=== PATIENT | male | born 1945 | race African-American/Black ===

== ENCOUNTER 2018-10-16 08:22 | Emergency (ER) | payer OTHER ==
--- NOTE | 2018-10-16 10:01 | EDPHYS ---
Physician Documentation [facility] Name: Etienne Jordan Age: 73 yrs Sex: Male : 1945 Arrival Date: 10/16/2018 Time: 08:24 Bed 4 Private MD: ED Physician Yovani De Paz HPI: 10/16 09:56 This 73 yrs old Black Male presents to ER via Ambulatory with complaints of Congestion. rn 09:56 The patient or guardian reports sinus pressure. Onset: The symptoms/episode rn began/occurred 1 week(s) ago. Severity of symptoms: At their worst the symptoms were mild, in the emergency department the symptoms are unchanged. Modifying factors: The symptoms are alleviated by nothing, the symptoms are aggravated by nothing. The patient has not experienced similar symptoms in the past. Reports sinus pressure and congestion for 1 week, OTC meds not helping, mild cough. Historical: - Allergies: 08:45 No Known Allergies; aa5 - PMHx: 08:45 CHF; Diabetes - IDDM; Hypertension; RENAL FAILURE; aa5 - Immunization history:: Adult Immunizations unknown. - Social history:: Smoking status: Patient/guardian denies using tobacco. - Ebola Screening: : No symptoms or risks identified at this time. - Family history:: not pertinent. - Hospitalizations: : No recent hospitalization is reported. ROS: 09:56 Constitutional: Negative for fever, chills, and weight loss, ENT: + sinus pressure and rn congestion Neck: Negative for injury, pain, and swelling, Cardiovascular: Negative for chest pain, palpitations, and edema, Respiratory: Negative for shortness of breath, wheezing, and pleuritic chest pain, Abdomen/GI: Negative for abdominal pain, nausea, vomiting, diarrhea, and constipation, MS/Extremity: Negative for injury and deformity, Skin: Negative for injury, rash, and discoloration, Neuro: Negative for headache, weakness, numbness, tingling, and seizure. Exam: 09:56 Constitutional: This is a well developed, well nourished patient who is awake, alert, rn and in no acute distress. Head/Face: Normocephalic, atraumatic. ENT: mild pharyngeal erythema, no stridor, no lesions Respiratory: Lungs have equal breath sounds bilaterally, clear to auscultation. No rales, rhonchi or wheezes noted. No increased work of breathing, no retractions or nasal flaring. Vital Signs: 08:45 BP 189 / 108; Pulse 60; Resp 20 S; Temp 97.0(TE); Pulse Ox 97% on R/A; Weight 124.28 kg aa5 (R); Height 5 ft. 7 in. (170.18 cm) (R); Pain 6/10; 09:45 BP 172 / 92; Pulse 60; Resp 18; Temp 97.2; Pulse Ox 98% on R/A; sg 08:45 Body Mass Index 42.91 (124.28 kg, 170.18 cm) aa5 08:45 Pt c/o headache aa5 MDM: 09:24 Patient medically screened. rn 09:56 Differential Diagnosis: Upper Respiratory Infection Sinusitis. Differential Diagnosis: rn Viral Syndrome. Data reviewed: vital signs, nurses notes. Counseling: I had a detailed discussion with the patient and/or guardian regarding: the historical points, exam findings, and any diagnostic results supporting the discharge/admit diagnosis, the need for outpatient follow up, to return to the emergency department if symptoms worsen or persist or if there are any questions or concerns that arise at home. Response to treatment: There is no appreciated change of the patient's symptoms at this time. Special discussion: I discussed with the patient/guardian in detail that at this point there is no indication for admission to the hospital. It is understood, however, that if the symptoms persist or worsen the patient needs to return immediately for re-evaluation. Administered Medications: No medications were administered Disposition: 10/16/18 10:00 Discharged to Home. Impression: Acute sinusitis, unspecified. - Condition is Stable. - Discharge Instructions: Sinusitis, Adult. - Prescriptions for Zithromax Z- Sukumar 250 mg Oral Tablet - take 1 tablet by ORAL route as directed for 5 days Day 1 - take two (2) tablets one time. Day 2, 3, 4 , 5 take one (1) tablet once daily.; 6 tablet. - Medication Reconciliation Form, Thank You Letter, Antibiotic Education, Prescription Opioid Use form. - Follow up: Private Physician; When: As needed; Reason: Recheck today's complaints, Re-evaluation by your physician. - Problem is new. - Symptoms have improved. Signatures: Fernie Watts RN RN Yovani De Paz MD MD rn Calderon, Audri, RN RN aa5 Corrections: (The following items were deleted from the chart) 10:05 10:00 10/16/2018 10:00 Discharged to Home. Impression: Acute sinusitis, unspecified. sg Condition is Stable. Forms are Medication Reconciliation Form, Thank You Letter, Antibiotic Education, Prescription Opioid Use. Follow up: Private Physician; When: As needed; Reason: Recheck today's complaints, Re-evaluation by your physician. Problem is new. Symptoms have improved. rn
--- NOTE | 2018-10-16 10:01 | ER ---
Nurse's Notes [facility] Name: Etienne Jordan Age: 73 yrs Sex: Male : 1945 Arrival Date: 10/16/2018 Time: 08:24 Bed 4 Private MD: Diagnosis: Acute sinusitis, unspecified Presentation: 10/16 08:44 Presenting complaint: Patient states: sinus congestion that began 1 week ago. Pt states aa5 "it's mostly at night than during the day". Pt denies sore throat, denies ear pain, denies cough. Transition of care: patient was not received from another setting of care. Onset of symptoms was October 2018. Risk Assessment: Do you want to hurt yourself or someone else? Patient reports no desire to harm self or others. Initial Sepsis Screen: Does the patient meet any 2 criteria? No. Patient's initial sepsis screen is negative. Does the patient have a suspected source of infection? No. Patient's initial sepsis screen is negative. Care prior to arrival: None. 08:44 Method Of Arrival: Ambulatory aa5 08:44 Acuity: LEEANN 4 aa5 Triage Assessment: 08:30 General: Appears in no apparent distress. Behavior is calm, cooperative. Respiratory: iw Airway is patent. Historical: - Allergies: 08:45 No Known Allergies; aa5 - PMHx: 08:45 CHF; Diabetes - IDDM; Hypertension; RENAL FAILURE; aa5 - Immunization history:: Adult Immunizations unknown. - Social history:: Smoking status: Patient/guardian denies using tobacco. - Ebola Screening: : No symptoms or risks identified at this time. - Family history:: not pertinent. - Hospitalizations: : No recent hospitalization is reported. Screenin:30 Abuse screen: Denies threats or abuse. Denies injuries from another. Nutritional sg screening: No deficits noted. Tuberculosis screening: No symptoms or risk factors identified. Never had TB. Fall Risk None identified. Assessment: 09:45 General: Appears in no apparent distress. well groomed, well developed, well nourished, sg Behavior is calm, cooperative, appropriate for age. Pain: Complains of pain in forehead, right cheek and left cheek Quality of pain is described as throbbing. Neuro: Level of Consciousness is awake, alert, obeys commands, Oriented to person, place, time, Delivery Nurse are equal bilaterally Moves all extremities. Full function Speech is normal, Facial symmetry appears normal, Denies weakness blurred vision dizziness, difficulty swallowing, paresthesias numbness headache photophobia diplopia. Cardiovascular: Patient's skin is warm and dry. Respiratory: Airway is patent Respiratory effort is even, unlabored, Respiratory pattern is regular, symmetrical, Breath sounds are clear. GI: No signs and/or symptoms were reported involving the gastrointestinal system. : No signs and/or symptoms were reported regarding the genitourinary system. EENT: Reports nasal congestion. Derm: No deficits noted. Musculoskeletal: No deficits noted. Vital Signs: 08:45 BP 189 / 108; Pulse 60; Resp 20 S; Temp 97.0(TE); Pulse Ox 97% on R/A; Weight 124.28 kg aa5 (R); Height 5 ft. 7 in. (170.18 cm) (R); Pain 6/10; 09:45 BP 172 / 92; Pulse 60; Resp 18; Temp 97.2; Pulse Ox 98% on R/A; sg 08:45 Body Mass Index 42.91 (124.28 kg, 170.18 cm) aa5 08:45 Pt c/o headache aa5 ED Course: 08:24 Patient arrived in ED. as 08:44 Arm band placed on. aa5 08:45 Triage completed. aa5 09:05 Patient has correct armband on for positive identification. Bed in low position. Call sg light in reach. Side rails up X2. Pulse ox on. NIBP on. Warm blanket given. Head of bed elevated. 09:24 Yovani De Paz MD is Attending Physician. rn 09:30 Caroline Atwood RN is Primary Nurse. iw 10:00 No provider procedures requiring assistance completed. Patient did not have IV access sg during this emergency room visit. Administered Medications: No medications were administered Outcome: 10:00 Discharge ordered by . rn 10:00 Discharged to home ambulatory. sg 10:00 Condition: good 10:00 Discharge instructions given to patient, Instructed on discharge instructions, follow up and referral plans. medication usage, safety practices, Demonstrated understanding of instructions, follow-up care, medications, Prescriptions given X 1. 10:05 Patient left the ED. sg Signatures: Fernie Watts RN RN sg Mariella Mccoy Irene, RN RN iw Yovani De Paz MD MD rn Calderon, Maegan, RASHAD RN aa5
== END 2018-10-16 10:05 | disposition home or self-care (01) ==
LOC: ER 08:22
DX: J01.90 Acute sinusitis, unspecified (principal)
CPT/HCPCS: 99283

== ENCOUNTER 2018-10-21 22:42 | Inpatient (IN) | payer OTHER ==
[2018-10-21] MEDS ORDERED: HYDRALAZINE HCL 20 MG/ML VIAL ONE (23:37)
[2018-10-21 23:49] LABS: Absolute Lymphocytes (CBC) 0.9 K/uL (0.7-4.9); Absolute Monocytes 0.5 K/uL (0.1-1.3); Basophils % 0.5 % (0-1.3); Eosinophils % 1.8 % (0-4.4); Hematocrit 36.7 % (39.6-49.0); Lymphocytes % 11.8 % (15.3-44.8); MPV 9.6 fL (7.6-11.3); Monocytes % 6.1 % (3.3-12.3); RBC Red Blood Cell Count 3.96 M/uL (4.33-5.43)
[2018-10-22 00:48] LABS: Protime INR 1.1
[2018-10-22 01:07] LABS: Albumin 3.2 g/dL (3.4-5.0); Bilirubin Direct 0.2 mg/dL (0-0.2); Bilirubin Total 0.5 mg/dL (0.2-1.0); Magnesium 2.5 mg/dL (1.8-2.4); Potassium 3.7 mmol/L (3.5-5.1); Protein, Total 7.1 g/dL (6.4-8.2)
[2018-10-22] MEDS ORDERED: IPRATROPIUM BROM 0.5MG/2.5ML ONE (01:20)
[2018-10-22] MEDS ORDERED: NITROGLYCERIN 1 GM PKT TD ONE (01:20)
[2018-10-22] MEDS ORDERED: ALBUTEROL 2.5 MG/3 ML NEB SOL ONE ×2 (01:20→01:32)
--- NOTE | 2018-10-22 01:24 | ER ---
Nurse's Notes [facility] Name: Etienne Jordan Age: 73 yrs Sex: Male : 1945 Arrival Date: 10/21/2018 Time: 22:45 Bed 25 Private MD: Diagnosis: Dyspnea;Combined systolic (congestive) and diastolic (congestive) heart failure Presentation: 10/21 22:57 Presenting complaint: Patient states: he is having difficulty breathing for several bb weeks was seen here a few days ago and diagnosed with a sinus infection. Transition of care: patient was not received from another setting of care. Onset of symptoms is unknown. Risk Assessment: Do you want to hurt yourself or someone else? Patient reports no desire to harm self or others. Initial Sepsis Screen: Does the patient meet any 2 criteria? No. Patient's initial sepsis screen is negative. Does the patient have a suspected source of infection? No. Patient's initial sepsis screen is negative. Care prior to arrival: None. 22:57 Method Of Arrival: Ambulatory bb 22:57 Acuity: LEEANN 2 bb Triage Assessment: 23:00 General: Appears in no apparent distress. uncomfortable, obese, Behavior is bb cooperative, anxious. Pain: Complains of pain in back and headache. Neuro: Level of Consciousness is awake, alert, obeys commands, Oriented to person, place, time, situation. Cardiovascular: Heart tones S1 S2 present Capillary refill < 3 seconds Patient's skin is warm and dry. Pulses are palpable in right radial artery and left radial artery. Respiratory: Reports shortness of breath Airway is patent Respiratory effort is labored, Respiratory pattern is tachypnea Breath sounds with wheezes bilaterally. Onset: The symptoms/episode began/occurred at an unknown time. the patient has mild shortness of breath. GI: Abdomen is obese. : right nephrostomy tube in place. Derm: Skin is dry, Skin is normal, Skin temperature is warm flushed appearance to face. Musculoskeletal: Circulation, motion, and sensation intact. Historical: - Allergies: 23:00 No Known Allergies; bb - Home Meds: 23:00 aspirin 81 mg Oral chew [Active]; calcitriol 0.25 mcg Oral cap 2 caps once daily bb [Active]; ergocalciferol (vitamin D2) 50,000 unit Oral cap 1 cap once monthly [Active]; furosemide 80 mg Oral tab 1 tab 2 times per day [Active]; gabapentin 300 mg Oral cap 1 cap 3 times per day [Active]; hydralazine 10 mg Oral tab 2 tab 3 times per day [Active]; isosorbide mononitrate 30 mg Oral Tb24 1 tab once daily [Active]; Levemir subcutaneous [Active]; metoprolol succinate 50 mg Oral Tb24 3 tabs once daily [Active]; Novolog Sub-Q [Active]; omeprazole 20 mg Oral TbEC 40 mg after meals and before bedtime [Active]; potassium chloride 20 mEq Oral TbER 2 tab once daily [Active]; terazosin 10 mg Oral cap 1 cap once daily [Active]; - PMHx: 23:00 CHF; Diabetes - IDDM; Hypertension; RENAL FAILURE; bb - PSHx: 23:00 right nephrostomy; bb - Immunization history:: Adult Immunizations up to date, Flu vaccine is up to date. - Social history:: Smoking status: Patient/guardian denies using tobacco. - Ebola Screening: : No symptoms or risks identified at this time. Screenin:12 Abuse screen: Denies threats or abuse. Nutritional screening: No deficits noted. bb Tuberculosis screening: No symptoms or risk factors identified. Fall Risk None identified. Assessment: 23:12 Reassessment: No changes from previously documented assessment. see triage assessment. bb 23:20 Cardiovascular: Rhythm is sinus rhythm. bb 10/22 00:35 Reassessment: Patient and/or family updated on plan of care and expected duration. Pain bb level reassessed. pt is tachypneic, labored, arun breath sounds coarse, awaiting diagnostic results, family at bedside. 01:30 Reassessment: Patient and/or family updated on plan of care and expected duration. Pain bb level reassessed. Elena Pearce [employer] SERVICE SALES REPRESENTATIVE at bedside for discussion of findings and recommendations pt to be admitted for further evaluation and treatment pt verbalized understanding of and agrees to plan of care awaiting admission and room assignment. 01:58 Reassessment: pt states he is feeling better, resp less labored, arun breath sounds bb clearer with rhonchi. 02:42 Reassessment: pt is A\T\O x 4, resp less labored, pt states he is feeling better, IV site bb intact, no erythema or edema noted, nephrostomy tube in place, family at bedside. Report called to Lurdes SOLORZANO for room 401. Vital Signs: 10/21 23:00 BP 241 / 124; Pulse 67; Resp 26 S; Temp 98(O); Pulse Ox 95% on R/A; Weight 124.74 kg bb (R); Height 5 ft. 6 in. (167.64 cm) (R); 23:54 BP 204 / 107; Pulse 68; Resp 26 S; Pulse Ox 96% ; bb 10/22 00:10 BP 197 / 99; Pulse 73; Resp 26 S; Pulse Ox 95% on R/A; bb 00:44 BP 188 / 107; Pulse 68; Resp 26 S; Pulse Ox 95% on R/A; bb 01:36 BP 165 / 99; Pulse 65; Resp 15; Temp 98.2; Pulse Ox 98% ; lt1 02:26 BP 184 / 82; Pulse 76; Resp 24 S; Temp 97.7(O); Pulse Ox 94% on R/A; bb 10/21 23:00 Body Mass Index 44.39 (124.74 kg, 167.64 cm) ED Course: 10/21 22:45 Patient arrived in ED. es 22:47 Santos Pressley, RASHAD is Primary Nurse. la1 22:57 Elena Pearce FNP-C is PHCP. snw 22:57 Yovani De Paz MD is Attending Physician. snw 22:58 Triage completed. bb 23:00 Arm band placed on Patient placed in an exam room, on a stretcher, on pulse oximetry. bb EKG completed in triage. Results shown to MD. 23:12 Patient has correct armband on for positive identification. Placed in gown. Bed in low bb position. Call light in reach. Adult w/ patient. on air director on. Pulse ox on. NIBP on. 23:30 X-ray completed. Portable x-ray completed in exam room. Patient tolerated procedure sg4 well. 23:32 XRAY Chest (1 view) In Process Unspecified. EDMS 23:55 Initial lab(s) drawn, by ED staff, sent to lab. bb 10/22 00:30 Inserted saline lock: 20 gauge in left antecubital area, using aseptic technique. lt1 00:34 Lab(s) recollected, by me, sent to lab. bb 01:22 Simón Salter MD is Hospitalizing Provider. snw 01:56 No provider procedures requiring assistance completed. Patient admitted, IV remains in bb place. Administered Medications: 10/21 23:54 Drug: hydrALAZINE 5 mg Route: IV; Rate: calculated rate; Site: left antecubital; bb 23:56 Follow up: IV Status: Completed infusion bb 10/22 00:11 Follow up: Response: Blood pressure is lowered bb Drug: Lasix 40 mg Route: IVP; Site: left antecubital; bb 02:23 Follow up: Response: No adverse reaction bb Drug: Nitro-Bid Ointment 2 % 1 inches Route: Transdermal; Site: anterior chest wall; bb 02:24 Follow up: Response: Marked relief of symptoms bb Drug: Albuterol - atroVENT (3:1) (2.5 mg - 0.5 mg) 3 ml Route: Nebulizer; bb 02:24 Follow up: Response: Marked relief of symptoms bb Output: 02:17 Urine: 440ml (Voided); Total: 440ml. bb Outcome: 01:23 Decision to Hospitalize by Provider. snw 01:56 Instructed on the need for admit. bb 02:24 Admitted to Tele accompanied by tech, family with patient, via wheelchair, room 401, bb with chart. 02:24 Condition: stable 02:55 Patient left the ED. Signatures: Dispatcher [employer] EDMS Eelna Pearce, KURT-C SALES AGENT [employer]-CsnLissa Fernandes Felicia, RN RN Jessa Miller RN RN Santos Pressley RN RN la1 Garcia, Susana sg4 [facility] Corrections: (The following items were deleted from the chart) 02:10/21 23:00 Home Meds: loratadine 10 mg Oral TbDL 1 tab once daily; bb bb 10/22 02:10/21 23:00 Home Meds: metoprolol tartrate 100 mg Oral tab 1.5 tab 2 times per day; bb bb
--- NOTE | 2018-10-22 01:24 | EDPHYS ---
Physician Documentation [facility] Name: Etienne Jordan Age: 73 yrs Sex: Male : 1945 Arrival Date: 10/21/2018 Time: 22:45 Bed 25 Private MD: ED Physician Yovani De Paz HPI: 10/21 23:13 This 73 yrs old Black Male presents to ER via Ambulatory with complaints of Breathing snw Difficulty. 23:13 The patient has shortness of breath at rest. Onset: The symptoms/episode began/occurred snw gradually, 3 week(s) ago, and became persistent. Duration: The symptoms are continuous, and are steadily getting worse. Associated signs and symptoms: Pertinent positives: worsening shortness of breath over the past three weeks.. Severity of symptoms: At their worst the symptoms were moderate severe in the emergency department the symptoms are unchanged. The patient has experienced similar episodes in the past. The patient has been recently seen by a physician: The patient has been recently seen at the [facility] Emergency Department, this week. Historical: - Allergies: 23:00 No Known Allergies; bb - Home Meds: 23:00 aspirin 81 mg Oral chew [Active]; calcitriol 0.25 mcg Oral cap 2 caps once daily bb [Active]; ergocalciferol (vitamin D2) 50,000 unit Oral cap 1 cap once monthly [Active]; furosemide 80 mg Oral tab 1 tab 2 times per day [Active]; gabapentin 300 mg Oral cap 1 cap 3 times per day [Active]; hydralazine 10 mg Oral tab 2 tab 3 times per day [Active]; isosorbide mononitrate 30 mg Oral Tb24 1 tab once daily [Active]; Levemir subcutaneous [Active]; metoprolol succinate 50 mg Oral Tb24 3 tabs once daily [Active]; Novolog Sub-Q [Active]; omeprazole 20 mg Oral TbEC 40 mg after meals and before bedtime [Active]; potassium chloride 20 mEq Oral TbER 2 tab once daily [Active]; terazosin 10 mg Oral cap 1 cap once daily [Active]; - PMHx: 23:00 CHF; Diabetes - IDDM; Hypertension; RENAL FAILURE; bb - PSHx: 23:00 right nephrostomy; bb - Immunization history:: Adult Immunizations up to date, Flu vaccine is up to date. - Social history:: Smoking status: Patient/guardian denies using tobacco. - Ebola Screening: : No symptoms or risks identified at this time. ROS: 23:13 Constitutional: Negative for fever, chills, and weight loss, Eyes: Negative for injury, snw pain, redness, and discharge, ENT: Negative for injury, pain, and discharge, Neck: Negative for injury, pain, and swelling, Cardiovascular: Negative for chest pain, palpitations, and edema. 23:13 Abdomen/GI: Negative for abdominal pain, nausea, vomiting, diarrhea, and constipation, Back: Negative for injury and pain, : Negative for injury, bleeding, discharge, and swelling, MS/Extremity: Negative for injury and deformity, Skin: Negative for injury, rash, and discoloration, Neuro: Negative for headache, weakness, numbness, tingling, and seizure. 23:13 Respiratory: Positive for dyspnea on exertion, orthopnea, shortness of breath, at rest. Exam: 23:10 Constitutional: This is a well developed, well nourished patient who is awake, alert, snw and in no acute distress. Head/Face: Normocephalic, atraumatic. Eyes: Pupils equal round and reactive to light, extra-ocular motions intact. Lids and lashes normal. Conjunctiva and sclera are non-icteric and not injected. Cornea within normal limits. Periorbital areas with no swelling, redness, or edema. ENT: Nares patent. No nasal discharge, no septal abnormalities noted. Tympanic membranes are normal and external auditory canals are clear. Oropharynx with no redness, swelling, or masses, exudates, or evidence of obstruction, uvula midline. Mucous membranes moist. Neck: Trachea midline, no thyromegaly or masses palpated, and no cervical lymphadenopathy. Supple, full range of motion without nuchal rigidity, or vertebral point tenderness. No Meningismus. Chest/axilla: Normal chest wall appearance and motion. Nontender with no deformity. No lesions are appreciated. 23:10 MS/ Extremity: Pulses equal, no cyanosis. Neurovascular intact. Full, normal range of motion. Neuro: Awake and alert, GCS 15, oriented to person, place, time, and situation. Cranial nerves II-XII grossly intact. Motor strength 5/5 in all extremities. Sensory grossly intact. Cerebellar exam normal. Normal gait. 23:10 Cardiovascular: Rate: normal, Rhythm: irregular, Pulses: no pulse deficits are appreciated, Heart sounds: normal, Edema: is not appreciated. 23:10 Respiratory: mild respiratory distress is noted, Respirations: shallow respirations, tachypnea, Breath sounds: + upper airway congestion. wheezing: that is moderate. 23:10 Abdomen/GI: Inspection: scar(s), are noted in the left lower quadrant. 23:10 Back: nephrostomy tube to right. 23:10 Skin: Appearance: normal except for affected area, Color: facial flushing, Temperature: warm, Moisture: dry. Vital Signs: 23:00 BP 241 / 124; Pulse 67; Resp 26 S; Temp 98(O); Pulse Ox 95% on R/A; Weight 124.74 kg bb (R); Height 5 ft. 6 in. (167.64 cm) (R); 23:54 BP 204 / 107; Pulse 68; Resp 26 S; Pulse Ox 96% ; bb 10/22 00:10 BP 197 / 99; Pulse 73; Resp 26 S; Pulse Ox 95% on R/A; bb 00:44 BP 188 / 107; Pulse 68; Resp 26 S; Pulse Ox 95% on R/A; bb 01:36 BP 165 / 99; Pulse 65; Resp 15; Temp 98.2; Pulse Ox 98% ; lt1 02:26 BP 184 / 82; Pulse 76; Resp 24 S; Temp 97.7(O); Pulse Ox 94% on R/A; bb 10/21 23:00 Body Mass Index 44.39 (124.74 kg, 167.64 cm) MDM: 10/21 23:07 Patient medically screened. [facility] 10/22 01:11 Data reviewed: vital signs, nurses notes. Data interpreted: environmental monitoring specialist: rate is 75 snw beats/min, rhythm is regular, pvc's. Counseling: I had a detailed discussion with the patient and/or guardian regarding: the historical points, exam findings, and any diagnostic results supporting the discharge/admit diagnosis, lab results, radiology results, the need for further work-up and treatment in the hospital. 10/21 23:09 Order name: Basic Metabolic Panel; Complete Time: 01:09 snw 10/21 23:09 Order name: CBC with Diff; Complete Time: 23:59 snw 10/21 23:09 Order name: LFT's; Complete Time: 01:09 snw 10/21 23:09 Order name: Magnesium; Complete Time: 01:09 snw 10/21 23:09 Order name: NT PRO-BNP; Complete Time: 01:09 snw 10/21 23:09 Order name: PT-INR; Complete Time: 00:58 snw 10/21 23:09 Order name: XRAY Chest (1 view) snw 10/21 23:09 Order name: EKG; Complete Time: 23:10 snw 10/21 23:10 Order name: Blood Culture Adult (2) snw 10/22 02:46 Order name: Urine Dipstick--Ancillary (enter results) ag4 10/21 23:09 Order name: Cardiac monitoring; Complete Time: 23:14 snw 10/21 23:09 Order name: EKG - Nurse/Tech; Complete Time: 23:14 snw 10/21 23:09 Order name: IV Saline Lock; Complete Time: 23:54 snw 10/21 23:09 Order name: Labs collected and sent; Complete Time: 23:54 snw 10/21 23:09 Order name: O2 Per Protocol; Complete Time: 23:14 snw 10/21 23:09 Order name: O2 Sat Monitoring; Complete Time: 23:14 snw Administered Medications: 10/21 23:54 Drug: hydrALAZINE 5 mg Route: IV; Rate: calculated rate; Site: left antecubital; bb 23:56 Follow up: IV Status: Completed infusion bb 10/22 00:11 Follow up: Response: Blood pressure is lowered bb 01:27 Drug: Lasix 40 mg Route: IVP; Site: left antecubital; bb 02:23 Follow up: Response: No adverse reaction bb 01:27 Drug: Nitro-Bid Ointment 2 % 1 inches Route: Transdermal; Site: anterior chest wall; bb 02:24 Follow up: Response: Marked relief of symptoms bb 01:27 Drug: Albuterol - atroVENT (3:1) (2.5 mg - 0.5 mg) 3 ml Route: Nebulizer; bb 02:24 Follow up: Response: Marked relief of symptoms bb Disposition: 03:09 Co-signature as Attending Physician, Yovani De Paz MD. rn Disposition: 10/22/18 01:23 Hospitalization ordered by Simón Salter for Observation. Preliminary diagnosis are Dyspnea, Combined systolic (congestive) and diastolic (congestive) heart failure. - Bed requested for Telemetry/MedSurg (Inpatient). - Status is Observation. fc - Condition is Stable. - Problem is new. - Symptoms have worsened. UTI on Admission? No Signatures: Dispatcher [employer] EDMS Kassie Espinal RN RN Elena Pearce, ICE SCULPTOR-C ICE SCULPTOR-Csnw Lizzette Resendez RN RN fc Ballard, Brenda, RN RN bb Yovani De Paz MD MD furniture arranger: (The following items were deleted from the chart) 02:10 01:23 Hospitalization Ordered by Simón Salter MD for Observation. Preliminary diagnosis is Dyspnea; Combined systolic (congestive) and diastolic (congestive) heart failure. Bed requested for Telemetry/MedSurg (Inpatient). Status is Observation. Condition is Stable. Problem is new. Symptoms have worsened. UTI on Admission? No. snw 02:10/21 23:00 Home Meds: loratadine 10 mg Oral TbDL 1 tab once daily; ryan davis 10/22 02:19 10/21 23:00 Home Meds: metoprolol tartrate 100 mg Oral tab 1.5 tab 2 times per day; ryan davis 10/22 02:55 02:10 10/22/2018 01:23 Hospitalization Ordered by Simón Salter MD for Observation. fc Preliminary diagnosis is Dyspnea; Combined systolic (congestive) and diastolic (congestive) heart failure. Bed requested for Telemetry/MedSurg (Inpatient). Status is Observation. Condition is Stable. Problem is new. Symptoms have worsened. UTI on Admission? No. kl
[2018-10-22] MEDS ORDERED: FUROSEMIDE 40 MG/4 ML VIAL ONE (01:32)
--- NOTE | 2018-10-22 02:11 | P.HP ---
Certification for Inpatient Patient admitted to: Inpatient With expected LOS: >2 Midnights Practitioner: I am a practitioner with admitting privileges, knowledge of patient current condition, hospital course, and medical plan of care. Services: Services provided to patient in accordance with Admission requirements found in Title 42 Section 412.3 of the Code of Federal Regulations Patient History Date of Service: 10/22/18 Reason for admission: CHF exacerbation History of Present Illness: Mr Jordan is a 73 years old male with history of obesity, IDDM, Right nephrostomy, CKD, HTN, who start about 3 weeks with progressive LE swelling associated with SOB. He is also complaining of stuffy nose. He denied fever, chills or cough. He came recently to ED ad was diagnosed with sinusitis. Today, he came to ED because SOB was worse, initially was only with ambulation and movements and now is at res. No previous ECHO in our records. At arrival he was severely hypertensive 240/124, Lab work shows normal WBC count. Creatinine 1.92 (baseline) elevated proBNP, CXR shows bilateral infiltrate consistent with pulmonary edema. Allergies No Known Allergies Allergy (Unverified 06/16/16 05:54) - Past Medical/Surgical History -: obesity -: HTN -: CHF -: DM II -: CKD -: Nephrostomy - Social History Smoking Status: Never smoker Alcohol use: No CD- Drugs: No Place of Residence: Home Review of Systems 10-point ROS is otherwise unremarkable Physical Examination - Physical Exam General: Alert, In no apparent distress HEENT: Atraumatic, PERRLA, Mucous membr. moist/pink, EOMI, Sclerae nonicteric Neck: Supple, 2+ carotid pulse no bruit, No LAD, Without JVD or thyroid abnormality Respiratory: Diminished, Crackles/rales (bibasilar rales) Cardiovascular: Normal S1 S2, No gallops Gastrointestinal: Normal bowel sounds, No tenderness Musculoskeletal: No tenderness, Swelling Integumentary: No rashes Neurological: Normal gait, Normal speech, Normal strength at 5/5 x4 extr, Normal tone, Normal affect Lymphatics: No axilla or inguinal lymphadenopathy - Studies Laboratory Data (last 24 hrs) 10/22/18 00:30: PT 13.0 H, INR 1.10 10/22/18 00:30: Sodium 142, Potassium 3.7, BUN 26 H, Creatinine 1.92 H, Glucose 263 H, Magnesium 2.5 H, Total Bilirubin 0.5, AST 17, ALT 21, Alkaline Phosphatase 90 10/21/18 23:35: WBC 7.5, Hgb 12.1 L, Hct 36.7 L, Plt Count 198 Assessment and Plan - Problems (Diagnosis) (1) CHF exacerbation Current Visit: Yes Status: Acute Qualifiers: Heart failure type: unspecified Qualified Code(s): I50.9 - Heart failure, unspecified (2) HTN (hypertension) Current Visit: Yes Status: Acute Qualifiers: Hypertension type: essential hypertension Qualified Code(s): I10 - Essential (primary) hypertension (3) Diabetes mellitus Current Visit: Yes Status: Acute Qualifiers: Diabetes mellitus type: type 2 Diabetes mellitus long term care pharmacist insulin use: with long term care pharmacist use Diabetes mellitus complication status: with unspecified complications Qualified Code(s): E11.8 - Type 2 diabetes mellitus with unspecified complications; Z79.4 - FPC (current) use of insulin (4) CKD (chronic kidney disease) Current Visit: Yes Status: Acute Qualifiers: Chronic kidney disease stage: stage 4 (severe) Qualified Code(s): N18.4 - Chronic kidney disease, stage 4 (severe) - Plan The patient will be admitted due to CHF exacerbation. Will order ECHO, lasix, Nitro paste, blood pressure monitoring, consult cardiology. - Advance Directives Does patient have a Living Will: No Does patient have a Durable POA for Healthcare: No - Code Status/Comfort Care Code Status Assessed: Yes Code Status: Full Code
[2018-10-22] MEDS ORDERED: ONDANSETRON 4 MG/2 ML VIAL IV PRN (03:01)
[2018-10-22] MEDS ORDERED: D50W 25 GM/50 ML SYRINGE IV PRN (03:01)
[2018-10-22] MEDS ORDERED: GLUCAGON 1 MG/VIAL IM PRN (03:01)
[2018-10-22] MEDS: INSULIN -REGULAR HUMAN 50 UNIT/0.5 ML ML SQ SCH ×5 (03:46→21:12)
[2018-10-22] MEDS: ACETAMINOPHEN 500 MG TAB PO PRN ×2 (03:47→23:40)
[2018-10-22 06:11] LABS: Urine Appearance CLEAR; Urine Bilirubin NEGATIVE (NEG); Urine Blood NEGATIVE (NEG); Urine Color YELLOW; Urine Glucose 1+ (NEG); Urine Protein 1+ (NEG); Urine Urobilinogen 0.2 mg/dL (0.2-1.0); Urine pH 6.5 (5.0-7.0)
[2018-10-22] MEDS: NITROGLYCERIN 1 GM PKT TD SCH ×2 (06:18→12:00)
[2018-10-22] MEDS: HYDRALAZINE HCL 20 MG/ML VIAL IV PRN ×3 (06:19→18:23)
[2018-10-22 06:30] LABS: Urine Microscopic Reflex ORDER UMIC
[2018-10-22 07:41] LABS: Urine Bacteria <20 /HPF (NONE SEEN); Urine Culture Reflex Order NOT NEEDED; Urine RBC <5 /HPF (NONE SEEN)
[2018-10-22] MEDS ORDERED: POTASSIUM 25 MEQ EFFERV TAB PO ONE (09:00)
[2018-10-22] MEDS: FUROSEMIDE 40 MG/4 ML VIAL IV SCH ×2 (09:40→16:44)
[2018-10-22] MEDS: ENOXAPARIN 40 MG/0.4 ML SQ SCH (09:40)
[2018-10-22] MEDS ORDERED: HOME MED 1 EA UNK (Omeprazole [Omeprazole] 1 CAP) PO PRN (12:19)
--- NOTE | 2018-10-22 12:21 | RAD REPORT ---
EXAM DESCRIPTION: RAD - Chest Single View - 10/21/2018 11:31 pm CLINICAL HISTORY: DYSPNEA Chest pain. COMPARISON: Chest Single View dated 12/25/2016; Chest Single View dated 11/04/2016 FINDINGS: Portable technique limits examination quality. Moderate bilateral pulmonary opacities are present with small pleural effusions. The heart is signifi cantly enlarged. No displaced fractures. IMPRESSION: Moderate CHF versus volume overload pattern.
[2018-10-22] MEDS ORDERED: PANTOPRAZOLE 40MG TABLET PO PRN (13:09)
[2018-10-22] MEDS ORDERED: VALACYCLOVIR 500 MG TAB PO SCH (14:00)
[2018-10-22] MEDS ORDERED: HYDRALAZINE HCL PO SCH (14:00)
[2018-10-22] MEDS: HYDRALAZINE HCL 25 MG TABLET PO SCH ×2 (15:15→21:10)
--- NOTE | 2018-10-22 16:28 | EKG ---
Test Date: 2018-10-21 Test Time: 22:53:08 [place] Ragger: LA MEASUREMENT RESULTS: Intervals: Rate: 75 AR: 166 QRSD: 94 QT: 440 QTc: 491 [place]: P: 53 AR: 166 QRS: -14 T: 42 INTERPRETIVE STATEMENTS: Sinus rhythm with occasional premature ventricular complexes Moderate voltage criteria for LVH, may be normal variant Prolonged QT Abnormal ECG Compared to ECG 12/25/2016 14:52:02 Ventricular premature complex(es) now present Left ventricular hypertrophy now present T-wave abnormality no longer present Electronically Signed On 10-22-18 16:27:36 PUTTY GLAZER by Raz Jordan
--- NOTE | 2018-10-22 16:44 | CON ---
CARDIOLOGY CONSULTATION Chief Complaint: Dyspnea. History Of Present Illness: Mr. Jordan for 6 months has been feeling progressively more short of edgar ath. He has orthopnea, edema, severe dyspnea on exertion. Denies chest pain. His weight has been g oing up. He thinks it has all been present for months, perhaps longer, not sure what the exact [facility] er was that made him decide to come today. He normally gets all his care at the [facility]. He has never had a heart cath. He has had nuclear stress test ultrasounds. He has chronic renal insuffici ency. He has a nephrostomy tube draining his right kidney. Renal insufficiency, diabetes, hypertens ion, morbid obesity, dyslipidemia. Medications: He is on atorvastatin. He has a chronic viral infection and takes Valtrex 5000 mg thre e times a day every day. His normal dose of Lasix is 80 mg twice a day. Physical Examination: General: He is 5 feet 6 inches, 284 pounds. HEENT: Normal. Carotids: No bruit. Lungs: Reveal crackles in the bases. Abdomen: His abdominal wall was edematous. Extremities: Presacral edema, pedal and pretibial edema are all noted in the range of 1 to 2+. Extr emities reveal palpable pulses. Social History: Denies tobacco use. Alcohol use, moderate. Impression And Plan: My impression is that the patient probably has congestive heart failure. He ma y have underlying coronary heart disease. I will recommend a pharmacologic nuclear stress test, echo , diuresis. If his ejection fraction is low enough, we can consider adding a drug such as Entresto, but his renal function may preclude that with his creatinine of 1.92. We may need to avoid all BERTIN i nhibitors and angiotensin receptor blockers completely. Thank you very much for your kind referral of Mr. Jordan. I will follow him with you. ANTONIO Voice ID: [id number] Report ID: [id number]
[2018-10-22] MEDS ORDERED: TERAZOSIN HCL PO SCH ×2 (21:00)
[2018-10-22] MEDS ORDERED: TERAZOSIN HCL 5 MG CAP PO SCH (21:00)
[2018-10-22] MEDS ORDERED: HOME MED 1 EA UNK (Metoprolol Tartrate [Metoprolol Tartrate] 100 MG) PO SCH (21:00)
[2018-10-22] MEDS ORDERED: ATORVASTATIN 20 MG TAB PO SCH (21:00)
[2018-10-22] MEDS: DOCUSATE NA 100 MG CAP PO SCH (21:11)
[2018-10-22] MEDS: METOPROLOL TAR 50 MG TAB PO SCH (21:19)
[2018-10-23] MEDS: FUROSEMIDE 40 MG/4 ML VIAL IV SCH ×2 (00:21→10:02)
[2018-10-23] MEDS: ALBUTEROL 2.5 MG/3 ML NEB SOL NEB PRN ×2 (01:43→07:35)
[2018-10-23] MEDS: IPRATROPIUM BROM 0.5MG/2.5ML NEB PRN ×2 (01:43→07:35)
[2018-10-23 04:06] LABS: Absolute Lymphocytes (CBC) 0.9 K/uL (0.7-4.9); Absolute Monocytes 0.6 K/uL (0.1-1.3); Absolute Neutrophil 4.3 K/uL (1.8-8.0); Basophils % 0.7 % (0-1.3); Hematocrit 37.9 % (39.6-49.0); Lymphocytes % 15.8 % (15.3-44.8); MPV 8.8 fL (7.6-11.3); Monocytes % 10.4 % (3.3-12.3); RBC Red Blood Cell Count 4.11 M/uL (4.33-5.43)
[2018-10-23 04:19] LABS: Potassium 3.7 mmol/L (3.5-5.1)
[2018-10-23] MEDS ORDERED: POTASSIUM CL SA 10 MEQ TAB PO ONE (05:18)
[2018-10-23] MEDS: INSULIN -REGULAR HUMAN 50 UNIT/0.5 ML ML SQ SCH ×3 (07:30→17:17)
[2018-10-23] MEDS ORDERED: PANTOPRAZOLE 40MG TABLET PO SCH (07:30)
[2018-10-23] MEDS ORDERED: REGADENOSON 0.4 MG/5 ML SYR IV ONE (07:41)
[2018-10-23] MEDS ORDERED: HOME MED 1 EA UNK (Citalopram Hydrobromide [Citalopram Hbr] 1 TAB) PO SCH (09:00)
[2018-10-23] MEDS ORDERED: ISOSORBIDE MONO SR 30 MG TAB PO SCH (09:00)
[2018-10-23] MEDS ORDERED: CALCITROL 0.25 MCG CAP PO SCH (09:00)
[2018-10-23] MEDS ORDERED: OMEPRAZOLE PO SCH (09:00)
[2018-10-23] MEDS ORDERED: CITALOPRAM 10 MG TABLET PO SCH (09:00)
[2018-10-23] MEDS: DOCUSATE NA 100 MG CAP PO SCH (10:00)
[2018-10-23] MEDS: HYDRALAZINE HCL 25 MG TABLET PO SCH ×2 (10:00→14:10)
[2018-10-23] MEDS: ENOXAPARIN 40 MG/0.4 ML SQ SCH (10:01)
--- NOTE | 2018-10-23 12:44 | RAD REPORT ---
EXAM DESCRIPTION: NM - Rest Stress Cardiac Imaging - 10/23/2018 12:35 pm CLINICAL HISTORY: CP Chest pain. COMPARISON: No comparisons TECHNIQUE: The patient was administered approximately 10mCi of Tc 99m Sestamibi prior to resting SPE CT imaging of the heart. The patient was then administered approximately 30 mCi of Tc 99m Sestamibi f ollowing exercise or pharmacologic stress. Multiplanar SPECT images were reviewed. FINDINGS: The left ventricular cavity appears prominent on rest and stress. Diminished radiopharmace utical accumulation is noted along the septum with stress. No fixed defect is seen to suggest hiberna ting myocardium or scarred myocardium. The end diastolic volume is 144 ml, the end systolic volume is 85 ml, and the ejection fraction is 41 %. IMPRESSION: Moderate sized area of mild stress-induced ischemia involving the septum suspected.
--- NOTE | 2018-10-23 13:05 | ECHO ---
HEIGHT: 5 ft 6 in WEIGHT: 273 lb 0 oz DATE OF STUDY: 10/23/[address]: Simón Junior MD 2-DIMENSIONAL: YES M.MODE: YES DOPPLER: YES COLOR FLOW: YES TDS: YES PORTABLE: NO DEFINITY: NO BUBBLE STUDY: NO DIAGNOSIS: CONGESTIVE HEART FAILURE CARDIAC HISTORY: CATHERIZATION: NO SURGERY: NO PROSTHETIC VALVE: NO PACEMAKER: NO MEASUREMENTS (cm) DIASTOLIC (NORMALS) SYSTOLIC (NORMALS) IVSd 1.8 (0.6-1.2) LA Diam (1.9-4.0) LVEF 50-55% LVIDd 4.8 (3.5-5.7) LVIDs 3.7 (2.0-3.5) %FS 22% LVPWd 1.7 (0.6-1.2) Ao Diam 2.9 (2.0-3.7) 2 DIMENSIONAL ASSESSMENT: RIGHT ATRIUM: NORMAL LEFT ATRIUM: DILATED RIGHT VENTRICLE: NORMAL LEFT VENTRICLE: LEFT VENTRICULAR HYPERTROPHY, SEVERE, CONCENTRIC TRICUSPID VALVE: NORMAL MITRAL VALVE: NORMAL PULMONIC VALVE: NORMAL AORTIC VALVE: NORMAL PERICARDIAL EFFUSION: NONE AORTIC ROOT: NORMAL LEFT VENTRICULAR WALL MOTION: NORMAL DOPPLER/COLOR FLOW: IMPAIRED LEFT VENTRICULAR RELAXATION. COMMENTS: NORMAL LEFT VENTRICULAR EJECTION FRACTION. DILATED LEFT ATRIUM. SEVERE CONCENTRIC LEFT VENTRICULAR HYPERTROPHY. IMPAIRED LEFT VENTRICULAR RELAXATION. TECHNOLOGIST: JENI DELCID RDCS
--- NOTE | 2018-10-23 14:10 | TREADPHA ---
DX: CHEST PAIN Date of Study: 10/23/2018 Ht: 5 6 Wt: 273 lb 0 oz Consulting Physician: SHIRA MEDICATIONS: TYLENOL, LIPITOR, CELEXA, PROVENTIL HISTORY: 73 YEAR OLD MALE WITH CHEST PAIN. HISTORY OF CONGESTIVE HEART FAILURE, HYPERTENSION, RENAL FAILURE, IDDM, NON SMOKER, NON DRINKER. PHYSICIAL EXAMINATION: RESTING B.P.: 187/104 RESTING H.R.: 76 RESTING EKG: SINUS, LONG QT, OTHERWISE NORMAL PROTOCOL: LEXISCAN EXERCISE TIME: 3:30 B.P. AT PEAK STRESS: 141/82 IMPRESSION: LEXISCAN INJECTED. CARDIOLITE INJECTED PER PROTOCOL. SEE NUCLEAR MEDICINE REPORT. NO SUPRAVENTRICULAR TACHYCARDIA. NO VENTRICULAR TACHYCARDIA. OCCASIONAL PREMATURE VENTRICULAR COMPLEXES THROUGHOUT PROCEDURE AND RECOVERY. PATIENT REPORTED NO CHEST PAIN OR TIGHTNESS THROUGHT PROCEDURE. NON DIAGNOSTIC EKG WITH LEXISCAN STRESS TEST.
[2018-10-23] MEDS: METOPROLOL TAR 50 MG TAB PO SCH (14:11)
--- NOTE | 2018-10-23 15:00 | P.DS ---
Admission Date: 10/22/18 Discharge Date: 10/23/18 Disposition: ROUTINE DISCHARGE Discharge Condition: GOOD Reason for Admission: CHF exacerbation Consultations: Cardiology - Problems (1) CHF exacerbation Onset Date: 10/23/18 Current Visit: Yes Status: Acute Qualifiers: Heart failure type: diastolic Qualified Code(s): I50.33 - Acute on chronic diastolic (congestive) heart failure (2) CKD (chronic kidney disease) Onset Date: 10/23/18 Current Visit: Yes Status: Acute Qualifiers: Chronic kidney disease stage: stage 4 (severe) Qualified Code(s): N18.4 - Chronic kidney disease, stage 4 (severe) (3) Diabetes mellitus Onset Date: 10/23/18 Current Visit: Yes Status: Acute Qualifiers: Diabetes mellitus type: type 2 Diabetes mellitus snf insulin use: with snf use Diabetes mellitus complication status: with unspecified complications Qualified Code(s): E11.8 - Type 2 diabetes mellitus with unspecified complications; Z79.4 - watermelon inspector (current) use of insulin (4) HTN (hypertension) Onset Date: 10/23/18 Current Visit: Yes Status: Acute Qualifiers: Hypertension type: essential hypertension Qualified Code(s): I10 - Essential (primary) hypertension Brief History of Present Illness: Mr Jordan is a 73 years old male with history of obesity, IDDM, Right nephrostomy, CKD, HTN, who start about 3 weeks with progressive LE swelling associated with SOB. He is also complaining of stuffy nose. He denied fever, chills or cough. He came recently to ED ad was diagnosed with sinusitis. Today, he came to ED because SOB was worse, initially was only with ambulation and movements and now is at res. No previous ECHO in our records. At arrival he was severely hypertensive 240/124, Lab work shows normal WBC count. Creatinine 1.92 (baseline) elevated proBNP, CXR shows bilateral infiltrate consistent with pulmonary edema. Hospital Course: Overall during the hospital stay patient remained stable Patient was initially admitted to the hospital for shortness of breath that was a worsening over couple of weeks. In bilateral lower extremity edema. Patient was admitted to the hospital for CHF exacerbation. Cardiology was consulted who recommended echocardiogram along with stress test. Patient had an echocardiogram done here in the hospital was started on IV Lasix. Patient had marked improvement in his symptoms on IV Lasix and was able to sit up over 3000 L of fluid. Initially patient weighed about 285 stated to read about 275. Bilateral lower extremity edema had improved. Chest x-ray initially showed pulmonary edema in 24 hr patient's physical exam was consistent with minimal to no crackles noted in the lung bases. Patient was switched over to p.o. Lasix and did well overall is well. Patient's echocardiogram was consistent with the ejection fraction was within normal limits however dilated cardiomyopathy. Etiology at that time were offered cardiac catheterization however patient refused and stated that he would like to go home. Cardiology recommended patient to be discharged home have outpatient followup and cardiac catheterization. Patient was educated regarding the risk and potential outcome for further worsening and importance of having a followup with primary care doctor in the department head. Patient at that time was asked to continue follow up with his primary care provider. Patient currently does take nitrates, hydralazine, Lasix 80 b.i.d. Patient was asked to continue taking this at the house. Patient was also asked to limit fluid intake at this time along with low -sodium diet. Vital Signs/Physical Exam: Temp Pulse Resp BP Pulse Ox 97.4 F 77 18 148/74 H 92 10/23/18 12:00 10/23/18 14:11 10/23/18 12:00 10/23/18 14:11 10/23/18 12:00 General: Alert, In no apparent distress HEENT: Atraumatic, PERRLA, EOMI Neck: Supple, JVD not distended Respiratory: Clear to auscultation bilaterally, Normal air movement Cardiovascular: Regular rate/rhythm, Normal S1 S2 Gastrointestinal: Normal bowel sounds, No tenderness Musculoskeletal: No tenderness Integumentary: No rashes Neurological: Normal speech, Normal tone, Normal affect Lymphatics: No axilla or inguinal lymphadenopathy Laboratory Data at Discharge: WBC 6.0 K/uL (4.3-10.9) D 10/23/18 03:49 Hgb 12.8 g/dL (13.6-17.9) L 10/23/18 03:49 Hct 37.9 % (39.6-49.0) L 10/23/18 03:49 Plt Count 182 K/uL (152-406) 10/23/18 03:49 PT 13.0 SECONDS (9.5-12.5) H 10/22/18 00:30 INR 1.10 10/22/18 00:30 Sodium 142 mmol/L (136-145) 10/23/18 03:49 Potassium 3.7 mmol/L (3.5-5.1) 10/23/18 03:49 BUN 22 mg/dL (7-18) H 10/23/18 03:49 Creatinine 1.82 mg/dL (0.55-1.3) H 10/23/18 03:49 Glucose 237 mg/dL (74-106) H 10/23/18 03:49 Magnesium 2.5 mg/dL (1.8-2.4) H 10/22/18 00:30 Total Bilirubin 0.5 mg/dL (0.2-1.0) 10/22/18 00:30 AST 17 U/L (15-37) 10/22/18 00:30 ALT 21 U/L (12-78) 10/22/18 00:30 Alkaline Phosphatase 90 U/L (45-117) 10/22/18 00:30 Home Medications: Atorvastatin Calcium 1.5 tab PO BEDTIME 10/22/18 Calcitriol [Rocaltrol] 2 cap PO DAILY 10/22/18 Citalopram Hydrobromide [Citalopram HBr] 1 tab PO DAILY 10/22/18 Docusate [Colace Cap*] 1 cap PO BID 10/22/18 Ergocalciferol (Vitamin D2) [Vitamin D2] 1 cap PO SEECOM 10/22/18 Furosemide 1 tab PO BID 10/22/18 Hydralazine HCl 1 tab PO TID 10/22/18 Insulin Aspart [Novolog] 10 unit SQ TIDWM 10/22/18 Insulin Detemir [Levemir] 60 units SQ BEDTIME 10/22/18 Isosorbide Mononitrate [Isosorbide Mononitrate ER] 1 tab PO DAILY 10/22/18 Metoprolol Tartrate 100 mg PO BID 10/22/18 Omeprazole 1 cap PO BEDTIME PRN 10/22/18 Omeprazole 2 cap PO DAILY 10/22/18 Potassium Chloride 2 tab PO DAILY 10/22/18 Terazosin HCl 1 cap PO BEDTIME 10/22/18 Valacyclovir [Valtrex*] 2 tab PO TID 10/22/18 Patient Discharge Instructions: Please followup with primary care provider and cardiology in about 1-2 days post discharge. No new medication. Continue on a low-sodium diet with restriction of 1.5 L of fluid every day. Resume taking your Lasix 80 mg b.i.d. You had an echocardiogram done here in the hospital which was consistent with normal ejection fraction however diastolic heart failure. Distresses was also within normal limits. Diet: Regular Activity: Ad ritchie Followup: Raz Jordan MD [ACTIVE - CAN ADMIT] -
[2018-10-24 15:16] LABS: Urine Blood NEGATIVE (NEG); Urine Glucose 1+ (NEG); Urine Protein 3+ (NEG)
== END 2018-10-23 17:40 | disposition home or self-care (01) | DRG 292 ==
LOC: ER 22:42 → ERHOLD 10-22 02:05 → 4TH 10-22 02:44
PROVIDERS: ADMIT Internal Medicine; ATTEND Family Medicine
DX: I13.0 Hypertensive heart and chronic kidney disease with heart failure and stage 1 through stage 4 chronic kidney disease, or unspecified chronic kidney disease (principal); I50.32 Chronic diastolic (congestive) heart failure; N18.4 Chronic kidney disease, stage 4 (severe); Z68.41 Body mass index [BMI] 40.0-44.9, adult; E11.22 Type 2 diabetes mellitus with diabetic chronic kidney disease; Z79.4 Long term (current) use of insulin; Z93.6 Other artificial openings of urinary tract status; E78.5 Hyperlipidemia, unspecified; E66.01 Morbid (severe) obesity due to excess calories; I42.0 Dilated cardiomyopathy
CPT/HCPCS: 36415; 71045; 78452; 80048; 80076; 81003; 81015; 82962; 83735; 83880; 85025; 85610; 87040; 93005; 93017; 93306; 94640; 96374; 96375; 99285; A9500; J0360; J1650; J1940; J2785

== ENCOUNTER 2018-10-27 01:34 | Emergency (ER) | payer OTHER ==
[2018-10-27 02:23] LABS: Protime INR 1.04
[2018-10-27 02:37] LABS: Albumin 3.2 g/dL (3.4-5.0); Bilirubin Direct 0.1 mg/dL (0-0.2); Bilirubin Total 0.4 mg/dL (0.2-1.0); Magnesium 2.3 mg/dL (1.8-2.4); Protein, Total 7.1 g/dL (6.4-8.2); Troponin (Emerg Dept Use Only) 0.02 ng/mL (0.0-0.045)
[2018-10-27] MEDS ORDERED: ALBUTEROL 2.5 MG/3 ML NEB SOL ONE (02:39)
--- NOTE | 2018-10-27 04:09 | EDPHYS ---
Physician Documentation [facility] Name: Etienne Jordan Age: 73 yrs Sex: Male : 1945 Arrival Date: 10/27/2018 Time: 01:38 Bed 17 Private MD: ED Physician Shlomo Mac HPI: 10/27 04:06 This 73 yrs old Black Male presents to ER via Ambulatory with complaints of Breathing gs Difficulty. 04:06 Onset: The symptoms/episode began/occurred 1 week(s) ago. Duration: The symptoms are gs intermittent. The patient's shortness of breath is aggravated by supine position, is alleviated by nebulizer treatment, sitting up. Associated signs and symptoms: Pertinent negatives: chest pain, hemoptysis. Severity of symptoms: At their worst the symptoms were moderate in the emergency department the symptoms have improved mildly. The patient has experienced similar episodes in the past, chronically. Historical: - Allergies: 01:55 No Known Allergies; ak1 - Home Meds: 02:07 acetaminophen-codeine 300-30 mg Oral tab [Active]; DuoNeb Inhl [Active]; amoxicillin bb 500 mg Oral tab [Active]; aspirin 81 mg Oral chew [Active]; atorvastatin 20 mg oral tab 1 tab once daily [Active]; brimonidine ophthalmic ophthalmic [Active]; calcitriol 0.25 mcg Oral cap 2 caps once daily [Active]; carboxymethylcellulose sodium miscellaneous [Active]; chlorhexadine mouthwash [Active]; citalopram 40 mg tab 1 tab once daily [Active]; Docusate Sodium Oral [Active]; dorzolamide-timolol ophthalmic ophthalmic [Active]; ergocalciferol (vitamin D2) 50,000 unit Oral cap 1 cap once monthly [Active]; fluticasone inhalation inhalation [Active]; furosemide 80 mg Oral tab 1 tab 2 times per day [Active]; gabapentin 300 mg Oral cap 1 cap 3 times per day [Active]; hydralazine 50 mg oral tab [Active]; hydrocodone-acetaminophen 10-325 mg Oral tab [Active]; insulin asparte [Active]; insulin detemir subcutaneous subcutaneous [Active]; isosorbide mononitrate 30 mg Oral Tb24 1 tab once daily [Active]; latanoprost ophthalmic ophthalmic [Active]; lidocaine 5% patch [Active]; metoprolol tartrate 100 mg Oral tab [Active]; Milk of Magnesia Oral [Active]; nitroglycerin 0.4 mg SL subl [Active]; omeprazole 20 mg Oral TbEC 40 mg after meals and before bedtime [Active]; potassium chloride 20 mEq Oral TbER 2 tab once daily [Active]; terazosin 10 mg Oral cap 1 cap once daily [Active]; - PMHx: 01:55 RENAL FAILURE; Hypertension; Diabetes - IDDM; CHF; ak1 - PSHx: 01:55 right nephrostomy; ak1 - Immunization history:: Adult Immunizations unknown. - Social history:: Smoking status: unknown. - Ebola Screening: : No symptoms or risks identified at this time. ROS: 04:06 All other systems are negative. gs Exam: 04:06 Head/Face: Normocephalic, atraumatic. Eyes: Pupils equal round and reactive to light, gs extra-ocular motions intact. Lids and lashes normal. Conjunctiva and sclera are non-icteric and not injected. Cornea within normal limits. Periorbital areas with no swelling, redness, or edema. ENT: Nares patent. No nasal discharge, no septal abnormalities noted. Tympanic membranes are normal and external auditory canals are clear. Oropharynx with no redness, swelling, or masses, exudates, or evidence of obstruction, uvula midline. Mucous membranes moist. Neck: Trachea midline, no thyromegaly or masses palpated, and no cervical lymphadenopathy. Supple, full range of motion without nuchal rigidity, or vertebral point tenderness. No Meningismus. Chest/axilla: Normal chest wall appearance and motion. Nontender with no deformity. No lesions are appreciated. Cardiovascular: Regular rate and rhythm with a normal S1 and S2. No gallops, murmurs, or rubs. Normal PMI, no JVD. No pulse deficits. Abdomen/GI: Soft, non-tender, with normal bowel sounds. No distension or tympany. No guarding or rebound. No evidence of tenderness throughout. Back: No spinal tenderness. No costovertebral tenderness. Full range of motion. Skin: Warm, dry with normal turgor. Normal color with no rashes, no lesions, and no evidence of cellulitis. MS/ Extremity: Pulses equal, no cyanosis. Neurovascular intact. Full, normal range of motion. Neuro: Awake and alert, GCS 15, oriented to person, place, time, and situation. Cranial nerves II-XII grossly intact. Motor strength 5/5 in all extremities. Sensory grossly intact. Cerebellar exam normal. Normal gait. 04:06 Constitutional: The patient appears alert, awake. 04:06 Cardiovascular: Edema: 1+ edema to level of left ankle and right ankle. 04:06 Respiratory: the patient does not display signs of respiratory distress, Respirations: normal, symetrical, Breath sounds: rhonchi, that are moderate, are scattered. 04:12 ECG was reviewed by the Attending Physician. Vital Signs: 01:55 BP 199 / 108; Pulse 59; Resp 18; Temp 97.2(O); Pulse Ox 98% on R/A; Weight 124.7 kg ak1 (R); Height 5 ft. 7 in. (170.18 cm) (R); Pain 0/10; 02:09 BP 163 / 96; ak1 04:12 BP 169 / 94; Pulse 54; Resp 16; Temp 97.2; Pulse Ox 97% on R/A; ak1 01:55 Body Mass Index 43.06 (124.70 kg, 170.18 cm) ak1 MDM: 01:57 Patient medically screened. 04:06 Differential diagnosis: CHF exacerbation, Chronic Obstructive Pulmonary Disease gs Myocardial Infarction pneumonia. Data reviewed: vital signs, nurses notes, old medical records, lab test result(s), EKG, radiologic studies. Counseling: I had a detailed discussion with the patient and/or guardian regarding: the historical points, exam findings, and any diagnostic results supporting the discharge/admit diagnosis, the need for outpatient follow up. 10/27 01:58 Order name: Basic Metabolic Panel; Complete Time: 03:57 10/27 01:58 Order name: CBC with Diff; Complete Time: 03:57 10/27 01:58 Order name: LFT's; Complete Time: 03:57 10/27 01:58 Order name: Magnesium; Complete Time: 03:57 10/27 01:58 Order name: NT PRO-BNP; Complete Time: 03:57 10/27 01:58 Order name: PT-INR; Complete Time: 03:57 10/27 01:58 Order name: Troponin (emerg Dept Use Only); Complete Time: 03:57 10/27 01:58 Order name: XRAY Chest (1 view) 10/27 01:58 Order name: EKG; Complete Time: 01:59 10/27 01:58 Order name: Cardiac monitoring; Complete Time: 02:17 10/27 01:58 Order name: EKG - Nurse/Tech; Complete Time: 02:17 10/27 01:58 Order name: IV Saline Lock; Complete Time: 02: 10/27 01:58 Order name: Labs collected and sent; Complete Time: 02: 10/27 01:58 Order name: O2 Per Protocol; Complete Time: 01:59 10/27 01:58 Order name: O2 Sat Monitoring; Complete Time: :59 EC:12 Rate is 55 beats/min. Rhythm is regular. HI interval is normal. QRS interval is normal. gs T waves are Flattened. Clinical impression: NSR w/ Non-specific ST/T Changes. Interpreted by me. Administered Medications: 02:32 Drug: Albuterol 2.5 mg Route: Inhalation; ak1 03:06 Follow up: Response: No adverse reaction ak1 Disposition: 10/27/18 04:08 Discharged to Home. Impression: Heart failure, Acute bronchitis. - Condition is Stable. - Discharge Instructions: Acute Bronchitis, Adult. - Prescriptions for Albuterol Sulfate 2.5 mg /3 mL (0.083 %) Inhalation Solution for Nebulization - inhale 1 unit by NEBULIZATION route every 8 hours As needed; 1 box. - Medication Reconciliation Form, Thank You Letter, Antibiotic Education, Prescription Opioid Use form. - Follow up: Raz Jordan MD; When: 2 - 3 days; Reason: Re-evaluation by your physician. Signatures: Dispatcher [employer] EDJessa Cruz RN RN Bushra Maurice RN RN ak1 Shlomo Mac MD MD Corrections: (The following items were deleted from the chart) 04:31 04:08 10/27/2018 04:08 Discharged to Home. Impression: Heart failure; Acute bronchitis. ak1 Condition is Stable. Forms are Medication Reconciliation Form, Thank You Letter, Antibiotic Education, Prescription Opioid Use. Follow up: Raz Jordan; When: 2 - 3 days; Reason: Re-evaluation by your physician.
--- NOTE | 2018-10-27 04:09 | ER ---
Nurse's Notes [facility] Name: Etienne Jordan Age: 73 yrs Sex: Male : 1945 Arrival Date: 10/27/2018 Time: 01:38 Bed 17 Private MD: Diagnosis: Heart failure;Acute bronchitis Presentation: 10/27 01:51 Presenting complaint: Patient states: nasal congestion, SOB. pt seen in ER and admitted ak1 to hospital being discharged Tuesday. no resp distress noted during triage. pt seen by Dr. Jordan 10/26/18 with increased SOB at night. Transition of care: patient was not received from another setting of care. Onset of symptoms was October 27, 2018. Risk Assessment: Do you want to hurt yourself or someone else? Patient reports no desire to harm self or others. Initial Sepsis Screen: Does the patient meet any 2 criteria? No. Patient's initial sepsis screen is negative. Does the patient have a suspected source of infection? No. Patient's initial sepsis screen is negative. Care prior to arrival: None. 01:51 Method Of Arrival: Ambulatory ak1 01:51 Acuity: LEEANN 3 ak1 Triage Assessment: 01:55 General: Appears in no apparent distress. Behavior is calm, cooperative. Pain: Denies ak1 pain. EENT: Reports nasal congestion. Neuro: No deficits noted. Cardiovascular: No deficits noted. Respiratory: Reports shortness of breath at rest Airway is patent Respiratory effort is unlabored, Onset: The symptoms/episode began/occurred pt stated SOB increases at night. , the patient has mild shortness of breath. GI: No signs and/or symptoms were reported involving the gastrointestinal system. : No signs and/or symptoms were reported regarding the genitourinary system. Derm: No signs and/or symptoms reported regarding the dermatologic system. Musculoskeletal: No signs and/or symptoms reported regarding the musculoskeletal system. Historical: - Allergies: 01:55 No Known Allergies; ak1 - Home Meds: 02:07 acetaminophen-codeine 300-30 mg Oral tab [Active]; DuoNeb Inhl [Active]; amoxicillin bb 500 mg Oral tab [Active]; aspirin 81 mg Oral chew [Active]; atorvastatin 20 mg oral tab 1 tab once daily [Active]; brimonidine ophthalmic ophthalmic [Active]; calcitriol 0.25 mcg Oral cap 2 caps once daily [Active]; carboxymethylcellulose sodium miscellaneous [Active]; chlorhexadine mouthwash [Active]; citalopram 40 mg tab 1 tab once daily [Active]; Docusate Sodium Oral [Active]; dorzolamide-timolol ophthalmic ophthalmic [Active]; ergocalciferol (vitamin D2) 50,000 unit Oral cap 1 cap once monthly [Active]; fluticasone inhalation inhalation [Active]; furosemide 80 mg Oral tab 1 tab 2 times per day [Active]; gabapentin 300 mg Oral cap 1 cap 3 times per day [Active]; hydralazine 50 mg oral tab [Active]; hydrocodone-acetaminophen 10-325 mg Oral tab [Active]; insulin asparte [Active]; insulin detemir subcutaneous subcutaneous [Active]; isosorbide mononitrate 30 mg Oral Tb24 1 tab once daily [Active]; latanoprost ophthalmic ophthalmic [Active]; lidocaine 5% patch [Active]; metoprolol tartrate 100 mg Oral tab [Active]; Milk of Magnesia Oral [Active]; nitroglycerin 0.4 mg SL subl [Active]; omeprazole 20 mg Oral TbEC 40 mg after meals and before bedtime [Active]; potassium chloride 20 mEq Oral TbER 2 tab once daily [Active]; terazosin 10 mg Oral cap 1 cap once daily [Active]; - PMHx: 01:55 RENAL FAILURE; Hypertension; Diabetes - IDDM; CHF; ak1 - PSHx: 01:55 right nephrostomy; ak1 - Immunization history:: Adult Immunizations unknown. - Social history:: Smoking status: unknown. - Ebola Screening: : No symptoms or risks identified at this time. Screenin:58 Abuse screen: Denies threats or abuse. Denies injuries from another. Nutritional ak1 screening: No deficits noted. Tuberculosis screening: No symptoms or risk factors identified. Fall Risk None identified. Assessment: 02:19 Reassessment: Patient appears in no apparent distress at this time. see triage ak1 assessment. 02:19 Cardiovascular: Rhythm is sinus bradycardia. Respiratory: Airway is patent Respiratory ak1 effort is unlabored, Respiratory pattern is regular, Breath sounds are clear. 02:32 Reassessment: pt resting with eyes closed, resp even and unlabored. family at bedside. ak1 will continue to monitor. 04:11 Reassessment: Patient appears in no apparent distress at this time. No changes from ak1 previously documented assessment. Patient and/or family updated on plan of care and expected duration. Pain level reassessed. Patient is alert, oriented x 3, equal unlabored respirations, skin warm/dry/pink. Patient states feeling better. Patient states symptoms have improved. Vital Signs: 01:55 BP 199 / 108; Pulse 59; Resp 18; Temp 97.2(O); Pulse Ox 98% on R/A; Weight 124.7 kg ak1 (R); Height 5 ft. 7 in. (170.18 cm) (R); Pain 0/10; 02:09 BP 163 / 96; ak1 04:12 BP 169 / 94; Pulse 54; Resp 16; Temp 97.2; Pulse Ox 97% on R/A; ak1 01:55 Body Mass Index 43.06 (124.70 kg, 170.18 cm) ak1 ED Course: 01:38 Patient arrived in ED. es 01:40 Shlomo Mac MD is Attending Physician. gs 01:50 Bushra Talamantes, RN is Primary Nurse. ak1 01:53 Triage completed. ak1 01:55 Arm band placed on Patient placed in an exam room, on a stretcher, on pulse oximetry, ak1 Patient notified of wait time. 01:58 Patient has correct armband on for positive identification. Placed in gown. Bed in low ak1 position. Call light in reach. Side rails up X 1. Adult w/ patient. Pulse ox on. NIBP on. 02:18 X-ray completed. Portable x-ray completed in exam room. Patient tolerated procedure kw well. 02:19 Initial lab(s) drawn, by me, sent to lab. EKG done, by ED staff, reviewed by Shlomo Mac MD. Inserted saline lock: 22 gauge in right hand, using aseptic technique. Blood collected. 02:20 XRAY Chest (1 view) In Process Unspecified. EDMS 04:08 Raz Jordan MD is Referral Physician. gs 04:12 No provider procedures requiring assistance completed. ak1 04:30 IV discontinued, intact, bleeding controlled, No redness/swelling at site. Pressure ak1 dressing applied. Administered Medications: 02:32 Drug: Albuterol 2.5 mg Route: Inhalation; ak1 03:06 Follow up: Response: No adverse reaction ak1 Outcome: 04:08 Discharge ordered by MD. colon 04:29 Discharged to home via wheelchair, with family. ak1 04:29 Condition: improved 04:29 Discharge instructions given to patient, family, Instructed on discharge instructions, follow up and referral plans. medication usage, Demonstrated understanding of instructions, follow-up care, medications, Prescriptions given X 2. 04:31 Patient left the ED. ak1 Signatures: Dispatcher [employer] Lissa Rhoades Brenda, RN RN Kassandra Dominguez Amber, RN RN ak1 Shlomo Mac MD MD
--- NOTE | 2018-10-27 08:35 | RAD REPORT ---
EXAM DESCRIPTION: RAD - Chest Single View - 10/27/2018 2:19 am CLINICAL HISTORY: SOB Chest pain. COMPARISON: Chest Single View dated 10/21/2018; Chest Single View dated 12/25/2016; Chest Single View dated 11/04/2016 FINDINGS: Portable technique limits examination quality. Improvement is seen in the previously noted CHF pattern with the lungs on today's study grossly clear . Moderate cardiomegaly noted. No displaced fractures.
--- NOTE | 2018-10-27 14:01 | EKG ---
Test Date: 2018-10-27 Test Time: 02:04:08 Maintenance Representative: REGINA MEASUREMENT RESULTS: Intervals: Rate: 55 NC: 154 QRSD: 94 QT: 470 QTc: 449 [place]: P: -11 NC: 154 QRS: -19 T: 124 INTERPRETIVE STATEMENTS: Sinus bradycardia Left ventricular hypertrophy with repolarization abnormality Abnormal ECG Compared to ECG 10/21/2018 22:53:08 Early repolarization now present Sinus rhythm no longer present Ventricular premature complex(es) no longer present Prolonged QT interval no longer present Electronically Signed On 10-27-18 13:58:47 MACHINE STRIPPER by Flex Solomon
== END 2018-10-27 04:31 | disposition home or self-care (01) ==
LOC: ER 01:34
DX: J20.9 Acute bronchitis, unspecified (principal); I50.9 Heart failure, unspecified; I10 Essential (primary) hypertension; E11.9 Type 2 diabetes mellitus without complications; N19 Unspecified kidney failure; Z79.4 Long term (current) use of insulin; Z79.82 Long term (current) use of aspirin
CPT/HCPCS: 36415; 71045; 80048; 80076; 83735; 83880; 84484; 85025; 85610; 93005